=== PATIENT | male | born 1930 | race Caucasian/White ===

== ENCOUNTER 2019-07-07 10:53 | Inpatient (IN) | payer OTHER ==
[2019-07-07] VITALS (45 sets, daily range): BP systolic 38–259; BP diastolic 13–230
[~2019-07-07] VITALS: Ht 172.7 cm; Wt 87.5 kg
[2019-07-07 11:25] LABS: ABSOLUTE NEUTROPHILS 17.1 thou/uL (1.4-8.2); BASOPHILS 0.2 % (0.0-2.0); HEMATOCRIT 44.5 % (42.0-52.0); HEMOGLOBIN 14.1 gm/dL (14.0-18.0); LYMPHOCYTES 3.4 % (24.0-44.0); MCH 30.7 pg (26.0-34.0); MCHC 31.6 g/dL (28.0-37.0); PLATELET COUNT 224 thou/uL (150-400); POLYS 85.4 % (36.0-66.0); RBC 4.59 mil/uL (4.50-6.00); RDW 13.9 % (10.5-14.5)
[2019-07-07] MEDS ORDERED: TOPROL XL25 MG PO (11:25)
[2019-07-07] MEDS ORDERED: CHLORTHALIDONE25 MG PO (11:25)
[2019-07-07] MEDS ORDERED: ZESTRIL20 MG PO (11:25)
[2019-07-07] MEDS ORDERED: ASA81BEC PO (11:26)
[2019-07-07] MEDS ORDERED: SUPER THERAVIT1 EACH PO (11:26)
[2019-07-07] MEDS ORDERED: NORVASC5 M1 PO (11:26)
[2019-07-07] MEDS ORDERED: SYNTHROID88 MC1 PO (11:26)
[2019-07-07] MEDS ORDERED: PLAVIX 75 MG TA75 MG PO (11:26)
[2019-07-07] MEDS ORDERED: LIPITOR40 MG PO (11:26)
[2019-07-07] MEDS ORDERED: ARICEPT10 M1 PO (11:26)
[2019-07-07 11:44] LABS: APTT 26.1 Seconds (24.5-32.8); INR 1.2; PROTIME 11.9 Seconds (9.3-11.4)
[2019-07-07 11:47] LABS: ALBUMIN 3.6 g/dL (3.4-5.0); CALCIUM 8.9 mg/dL (8.5-10.1); CREATININE 7.3 mg/dL (0.7-1.3); MAGNESIUM 2.9 mg/dL (1.8-2.4); TOTAL BILIRUBIN 0.4 mg/dL (<0.1-1.0); TROPONIN-I 0.17 ng/mL (<0.06)
[2019-07-07 11:51] LABS: POTASSIUM 6.1 mmol/L (3.5-5.1)
[2019-07-07 12:11] LABS: URINE BILIRUBIN NEGATIVE (Negative); URINE BLOOD NEGATIVE (Negative); URINE CLARITY CLEAR; URINE COLOR YELLOW; URINE GLUCOSE-RANDOM* NEGATIVE (Negative); URINE KETONES NEGATIVE (Negative); URINE LEUKOCYTES-REFLEX TRACE (Negative); URINE NITRITE-REFLEX NEGATIVE (Negative); URINE PROTEIN (DIPSTICK) NEGATIVE (Negative); URINE SPECIFIC GRAVITY >= 1.030 (1.005-1.035); URINE UROBILINOGEN 0.2 E.U./dl (0.2-1.0)
[2019-07-07 12:56] LABS: BE(vivo) -19.3 mmol/L (-2 to +3); PO2 107.4 mmHg (80.0-100.0); sO2 96.8 % (92.0-98.0)
[2019-07-07 12:57] LABS: PCO2 19.5 mmHg (35.0-45.0); pH 7.176 (7.360-7.450)
[2019-07-07 13:11] LABS: CALCIUM 8.4 mg/dL (8.5-10.1); CREATININE 7.4 mg/dL (0.7-1.3)
[2019-07-07 13:44] LABS: URINE CREATININE-RANDOM* 311.3 mg/dL
[2019-07-07 17:33] LABS: CALCIUM 7.7 mg/dL (8.5-10.1); POTASSIUM 5.4 mmol/L (3.5-5.1)
--- NOTE | 2019-07-07 23:05 | EKG ---
[facility] [place] [address] [place] [address] ELECTROCARDIOGRAM REPORT Name: PAPI ELIZABETH Room #: 243-P ADM IN M.R.#: [id number] Admission: 07/07/19 Attend Phys: Alec Jay Discharge: Date of : 34 Report #: [id number] THIS REPORT FOR: cc: Kareem Muñoz MD, Rene P. MD Couchonnal, Luis F. MD ~ THIS REPORT FOR: //name// [facility] ED Test Date: 2019-07-07 Test Time: 10:58:50 Pat Name: PAPI ELIZABETH Department: Room: 243 Gender: M [facility] 1930 Requested By: Harrison Colindres Order Number: [id number] MD: Percy Goodman Measurements Intervals [place] Rate: 88 P: [place]: QRS: 23 QRSD: 128 T: 172 QT: 394 QTc: 477 Interpretive Statements Atrial fibrillation Left bundle branch block Compared to ECG 10/30/1991 07:30:00 Left bundle-branch block now present Sinus rhythm no longer present Atrial abnormality no longer present T-wave abnormality no longer present Possible ischemia no longer present Electronically Signed On 07-07-2019 23:03:27 CDT by Percy Goodman [email or web address] <ELECTRONICALLY SIGNED> By: Percy Goodman MD 07/07/19 2303 1058 Percy Goodman MD /EPI
[2019-07-08] VITALS (12 sets, daily range): BP systolic 65–152; BP diastolic 19–101
[2019-07-08 04:25] LABS: HEMATOCRIT 35.1 % (42.0-52.0); MCHC 30.9 g/dL (28.0-37.0); MCV 100.3 fL (80.0-100.0); PLATELET COUNT 160 thou/uL (150-400); RDW 14.1 % (10.5-14.5); WBC 20.6 thou/uL (4.0-11.0)
[2019-07-08 04:26] LABS: HEMOGLOBIN 10.8 gm/dL (14.0-18.0)
[2019-07-08 05:44] LABS: CALCIUM 7.7 mg/dL (8.5-10.1); CREATININE 7.9 mg/dL (0.7-1.3)
[2019-07-08 05:48] LABS: POTASSIUM 6.4 mmol/L (3.5-5.1)
[2019-07-08 06:12] LABS: ABSOLUTE NEUTROPHILS 16.7 thou/uL (1.4-8.2); LARGE PLATELETS OCCASIONAL; METAMYELOCYTES 3 %
--- NOTE | 2019-07-23 07:20 | HC ---
[facility] [place] [place] [address] CONSULTATION Name: PAPI ELIZABETH Room #: 243-P [facility] IN M.R.#: [id number] Admission: 07/07/19 Attend Phys: Alec Jay Discharge: 07/08/19 Date of : 34 Report #: [id number] THIS REPORT FOR: cc: Mera Muñoz MD, Rene P. MD Neufeld, Timothy K. MD ~ CC: DR. MERA Muñoz DATE OF SERVICE: 07/07/2019 NEPHROLOGY CONSULTATION REASON FOR CONSULTATION: Elevated creatinine/renal failure. HISTORY OF PRESENT ILLNESS: This is an 89-year-old male who was brought into the Emergency Room by his daughter. He lives alone, with her assistance remotely. She had called him yesterday and he was not acting his self. She went over and found that he had not been taking his meds for a couple of days and then it did not appear that he had been eating or drinking much. He was very weak. When she went by again today, he was even weaker and was found on the floor. She brought him to the Emergency Room. As the daughter describes, the patient is very stoic, so he does not admit to much in the way of symptoms. She states that he has been low on intake of food and fluids. He was found on the floor, but he does not remember falling. He denies pain at this time. He denies dyspnea, cough, chest pain or palpitations. He reports no difficulty voiding urine. She tells me that he has not had any previous problems with emptying of his bladder or prostate trouble. The patient sees Dr. Mera Muñoz as his primary physician and the daughter tells me his last labs, about 6 months ago, had a creatinine level slightly higher than 2. While in the Emergency Room, the patient originally presented with a blood pressure of 108/43 but quickly dropped in the 60/40 range. He had been given some IV fluids and a bolus of normal saline. He is oxygenating well. He is not having any fever. The patient's daughter states that he has been at home alone and that she has been the only one coming and going and that she is following isolation procedure, so he has not had any exposure to COVID-19. PAST MEDICAL HISTORY: Atherosclerotic coronary artery disease. He had coronary artery bypass graft surgery over 20 years ago. He has also had a prior coronary stent. He has some hypertension. He has some atrial fibrillation. He is functional, but has some dementia. Other than his coronary artery bypass graft surgery in 1991, he had a tonsillectomy in 1939. MEDICATIONS: At home, although he has not taken them for at least 2 to 2-03/[address] [address] CONSULTATION Name: PAPI ELIZABETH Room #: 243-P DIS IN M.R.#: [id number] Admission: 07/07/19 Attend Phys: Alec Jay Discharge: 07/08/19 Date of : 34 Report #: [id number] days, metoprolol 25 mg daily, lisinopril 20 mg daily, chlorthalidone 25 mg daily, amlodipine 5 mg daily, atorvastatin 40 mg daily, Aricept 5 mg daily, Plavix 75 mg daily, aspirin 81 mg daily, multivitamin daily, levothyroxine 0.088 mg daily. ALLERGIES: No known medical allergies. FAMILY HISTORY: Noncontributory. SOCIAL HISTORY: The patient is functional in spite of his mild dementia diagnosis. He lives alone. His daughter will do shopping for him. He generally gets his meals and she lays out his medicines and he takes his medications. She said it requires her talking to him twice a day to get him to do that, but so far he has been able to stay at home. He lives in [place], [place]. He is a . REVIEW OF SYSTEMS: Again, he has been moderately functional as noted above, although he does have some mild dementia. He denies dyspnea, cough, chest pain or palpitations. No fever. He denies nausea or vomiting, although the daughter thought she might have seen some emesis in his home. He also had incontinence of stool. No milly diarrhea. He denies abdominal pain. Usually no problems voiding urine of which he is aware and the daughter knew of no voiding problems. She states she is concerned about a lesion on the right lateral aspect of his tongue. He states he bit his tongue recently. He has intermittent edema. No exposures to p.r.n. or other new medications. He is unaware of fevers, chills or sweats. He has some chronic right hand tremor. PHYSICAL EXAMINATION: GENERAL: Elderly appearing male, awake, alert, responsive, although very hard of hearing. He is somewhat lethargic. VITAL SIGNS: Blood pressure most recently 81/54 with a heart rate of 77, respiratory rate is 18, oxygen saturation 100% with a temperature of 97.8. HEENT: Shows pupils are equal and reactive. Sclerae nonicteric. Oral mucosa is dry. I see some evidence of mild bruising, potential mild laceration on the tongue. He is not putting his tongue out far enough to see the lesion about which his daughter is talking. NECK: Supple without adenopathy, thyromegaly, JVD or bruit. CHEST: Shows shallow breath sounds bilaterally, but is generally clear. HEART: Has an irregularly irregular rhythm. ABDOMEN: Has active bowel sounds, is soft, nontender at this time. I cannot palpate organomegaly or masses. I cannot palpate nor percuss an enlarged urinary bladder. EXTREMITIES: Show no peripheral edema. He has 1+ pedal pulses. Chest x-ray shows a lordotic view, so I do not see any milly infiltrates and lung volumes looked dramatically diminished, but the angle is wrong to fully be [address] [address] CONSULTATION Name: PAPI ELIZABETH NATHALY Room #: [facility] IN M.R.#: [id number] Admission: 07/07/19 Attend Phys: Alec Jay Discharge: 07/08/19 Date of : 34 Report #: [id number] able to read it well. LABORATORY DATA: Sodium 145, potassium 6.1, chloride 120, bicarbonate 13, BUN 143, creatinine 7.3, glucose 170, calcium 8.9, phosphorus 8.3, magnesium 2.9, AST 39, ALT 41, total protein 7.0, albumin 3.6. Lactate 2.6. CPK 1463. Troponin 0.17. White count 20,000, hemoglobin 14.1, hematocrit 44.5, platelets 224,000. Differential on the white count, 85 neutrophils, 4 lymphs, 11 monos. Urinalysis, specific gravity greater than 1.030, pH 5.0, negative dipstick. Arterial blood gas, pH 7.17, pCO2 of 19.5, pO2 of 107. ASSESSMENT: 1. Acute kidney injury (presumed). He is hypotensive on presentation. He also has a leukocytosis. He is volume deplete on exam. He has had decreased intake of food and fluids. He has not been on his usual medications. So, I do not think they are causing the problem. We will check to see if he has urinary retention, but I cannot find any on physical exam. We will get a renal ultrasound. In the meantime, he has gotten some IV fluids. We will continue IV fluids and add pressors as needed to maintain an adequate blood pressure. I have no old labs to go on other than what his daughter reports from Dr. Muñoz's office a number of months ago. I would suggest he has some underlying CKD, but never anything this severe. His urine that was done was remarkable for a very high specific gravity, again supporting volume depletion/hypoperfusion as the etiology. 2. Hypotension as noted above. He does not have fever, but he does have a leukocytosis. He certainly will be screened for sepsis. We will get cultures. He has already been put on broad-spectrum antibiotics. He needs some IV fluids for volume and then potentially some pressors to maintain adequate blood pressure. 3. Metabolic acidosis. Anion gap is not up and only 12. Lactate was not elevated. He is blowing off CO2 on his blood gas. We will wait and see how this develops. He was not on medications to drive the acidosis. There were no ketones in his urine. 4. Leukocytosis as noted above. Again, we will get cultures and broad spectrum antibiotics looking for a source. 5. Coronary artery disease, previous coronary artery bypass graft surgery and stent. Mildly elevated troponin. 6. Hypothyroidism, on replacement. 7. Atrial fibrillation, rate currently controlled. PLAN: 1. He has already gotten a couple liters of IV normal saline. I will put him on normal saline at 150 mL per hour. 2. We will place Cortes catheter. 3. Check renal ultrasound. 4. Check fractional excretion of sodium. [facility] [address] [place] [address] CONSULTATION Name: PAPI ELIZABETH Room #: 243-P DIS IN M.R.#: [id number] Admission: 07/07/19 Attend Phys: Alec Jay Discharge: 07/08/19 Date of : 34 Report #: [id number] 5. Followup labs. 6. Cultures have been drawn. 7. Agree with broad-spectrum antibiotics. 8. We will follow along and assist in the care of this very pleasant elderly gentleman. 9. Nothing on presentation at this time to suggest COVID-19. <ELECTRONICALLY SIGNED> By: Misael Elkins MD 07/23/19 0720 1346 [id number] Misael Elkins MD /nt
== END 2019-07-08 06:50 | DRG 177 ==
LOC: ER 10:53 → EROBS 12:30 → ICU 15:10
PROVIDERS: Emergency Medicine; Internal Medicine Nephrology; Nurse Practitioner Family; ADMIT Hospitalist
PROC: 02HV33Z Insertion of Infusion Device into Superior Vena Cava, Percutaneous Approach (ICD-10-PCS; principal; 2019-07-07)
DX: J69.0 Pneumonitis due to inhalation of food and vomit (principal); J96.01 Acute respiratory failure with hypoxia; K92.0 Hematemesis; N17.9 Acute kidney failure, unspecified; M62.82 Rhabdomyolysis; E87.2 Acidosis; R57.1 Hypovolemic shock; F03.90 Unspecified dementia, unspecified severity, without behavioral disturbance, psychotic disturbance, mood disturbance, and anxiety; E78.00 Pure hypercholesterolemia, unspecified; I48.91 Unspecified atrial fibrillation; E78.5 Hyperlipidemia, unspecified; I12.9 Hypertensive chronic kidney disease with stage 1 through stage 4 chronic kidney disease, or unspecified chronic kidney disease; E87.5 Hyperkalemia; I25.10 Atherosclerotic heart disease of native coronary artery without angina pectoris; E03.9 Hypothyroidism, unspecified; N18.3 Chronic kidney disease, stage 3 (moderate); R19.7 Diarrhea, unspecified; Z66 Do not resuscitate; E66.9 Obesity, unspecified; Z95.5 Presence of coronary angioplasty implant and graft; Z95.1 Presence of aortocoronary bypass graft; Z90.89 Acquired absence of other organs; Z79.82 Long term (current) use of aspirin; Z79.899 Other long term (current) drug therapy; Z68.29 Body mass index [BMI] 29.0-29.9, adult; Z99.81 Dependence on supplemental oxygen; W18.30XA Fall on same level, unspecified, initial encounter; Y93.89 Activity, other specified; Y92.031 Bathroom in apartment as the place of occurrence of the external cause; Y99.8 Other external cause status
CPT/HCPCS: 10203; 27000